=== PATIENT | female | born 1945 | race Caucasian/White ===

== ENCOUNTER → 2017-05-08 | Outpatient (CLI) | payer OTHER, MEDICARE | LOC: FIMAGING 19:21 | PROVIDERS: ATTEND Psychiatry & Neurology Neurology | DX: M50.30 Other cervical disc degeneration, unspecified cervical region (principal); M47.892 Other spondylosis, cervical region ==

== ENCOUNTER → 2017-11-14 | Outpatient (CLI) | payer OTHER, MEDICARE | LOC: FCPNEURO 23:13 | PROVIDERS: ATTEND Student in an Organized Health Care Education/Training Program | DX: G47.33 Obstructive sleep apnea (adult) (pediatric) (principal); R09.02 Hypoxemia ==

== ENCOUNTER 2017-11-28 13:48 | Observation (INO) | payer OTHER, MEDICARE ==
[2017-11-28] MEDS ORDERED: ASPIRIN 81 MG CHEWABLE TAB ONE (13:57)
--- NOTE | 2017-11-28 14:04 | CPEKG ---
Heart Rate: 75 RR Interval: 800 P-R Interval: 188 QRSD Interval: 80 QT Interval: 376 QTC Interval: 420 P Jackson: 35 QRS Jackson: 96 T Wave Jackson: 42 EKG Severity - OTHERWISE NORMAL ECG - EKG Impression: SINUS RHYTHM EKG Impression: RIGHT AXIS DEVIATION Electronically Signed By: Bryant Brooks 28-Nov-2017 14:27:10
[2017-11-28] MEDS ORDERED: ASPIRIN 81 MG CHEWABLE TAB PO ONE (14:13)
[2017-11-28 14:23] LABS: PLATELET COUNT 210 10^3/uL (150-400)
--- NOTE | 2017-11-28 14:27 | EDPHY ---
H & P Time Seen by Provider: 11/28/17 13:55 HPI/ROS: CHIEF COMPLAINT: Chest pain diaphoresis HISTORY OF PRESENT ILLNESS: Patient has been having symptoms on and off for the last 2 months. Today at 10:00 a.m. she developed left sided chest pain just lateral to the sternum radiating to her armpit which was sensitive discomfort associated with feeling nausea and very clammy which lasted about 4 hr now is completely gone. Associated with her just feeling on well and fatigued and no energy. Her daughter thought she was unsteady on her feet. Symptoms were moderate in our completely resolved. Not exertional or positional or pleuritic. REVIEW OF SYSTEMS: Eye: no change in vision ENT: no sore throat Cardiac: HPI Pulmonary: no cough or SOB Abdomen: no vomiting, diarrhea, abdominal pain Musculoskeletal: no back pain or leg swelling Skin: Clammy Neuro: no headache Constitutional: no fever : no urinary symptoms A comprehensive 10 point review of systems is otherwise negative aside from elements mentioned in the history of present illness. PAST MEDICAL HISTORY: Cholecystectomy, hysterectomy, knee replacement. Negative for diabetes hypertension, cholesterol unknown. Bipolar. Had a stress test about 10 years ago, last cardiac risk stratification. Family history: Father at 63 of myocardial infarction, brother has coronary disease. Social history: Nonsmoker General Appearance: Alert and conversant, cooperative. Eyes: No scleral icterus. ENT, Mouth: Normal mucous membranes. Respiratory: Normal respiratory effort, breath sounds equal, lungs are clear to auscultation. Cardiovascular: Regular rate and rhythm. Gastrointestinal: Abdomen is soft and non tender. Neurological: Alert, face symmetric, normal motor and sensory in extremities. Skin: Not currently diaphoretic, no zoster Musculoskeletal: No peripheral edema. No calf tenderness. Psychiatric: Not agitated. Emergency Department course/MDM: Oral aspirin, high suspicion for ACS with history and diaphoresis, risk factor of significant family history. EKG, chest x-ray, troponin, admission for risk stratification. HEART score 5, moderate risk, if troponin normal. 1446: Troponin negative, discussed with the admitting hospitalist Dr. Philippe. Results and plan discussed with patient and daughter, in agreement. Smoking Status: Never smoked Constitutional: Initial Vital Signs Temperature (C) 36.8 C 11/28/17 13:50 Heart Rate 87 11/28/17 13:50 Respiratory Rate 18 11/28/17 13:50 Blood Pressure 148/89 H 11/28/17 13:50 O2 Sat (%) 93 11/28/17 13:50 O2 Delivery Mode Room Air Allergies/Adverse Reactions: No Known Allergies Allergy (Unverified 11/28/17 13:49) Home Medications: Medication Instructions Recorded Depakote 11/28/17 RESTORIL 11/28/17 Seroquel 11/28/17 Medical Decision Making - Diagnostics EKG Interpretation: 12-lead EKG interpreted by me; official reading is in trace master. My interpretation is sinus rhythm with right axis, no acute ischemic changes. Imaging Results: Chest x-ray personally interpreted as negative for reason for chest pain. Differential Diagnosis: Differential diagnosis considered for chest pain including but not limited to myocardial ischemia, aortic dissection, pericarditis, pulmonary embolus, chest wall pain, pleural inflammation and pulmonary infectious causes. - Data Points Laboratory Results: Laboratory Results 11/28/17 14:08 11/28/17 14:08 11/28/17 11/28/17 14:08 14:08 WBC 6.36 10^3/uL 10^3/uL (3.80-9.50) RBC 4.52 10^6/uL 10^6/uL (4.18-5.33) Hgb 16.0 g/dL g/dL (12.6-16.3) Hct 45.2 % % (38.0-47.0) MCV 100.0 fL H fL (81.5-99.8) MCH 35.4 pg H pg (27.9-34.1) MCHC 35.4 g/dL g/dL (32.4-36.7) RDW 13.2 % % (11.5-15.2) Plt Count 210 10^3/uL 10^3/uL (150-400) MPV 9.3 fL fL (8.7-11.7) Neut % (Auto) 47.8 % % (39.3-74.2) Lymph % (Auto) 38.4 % % (15.0-45.0) Caroline % (Auto) 11.0 % % (4.5-13.0) Eos % (Auto) 1.7 % % (0.6-7.6) Baso % (Auto) 0.6 % % (0.3-1.7) Nucleat RBC Rel Count 0.0 % % (0.0-0.2) Absolute Neuts (auto) 3.04 10^3/uL 10^3/uL (1.70-6.50) Absolute Lymphs (auto) 2.44 10^3/uL 10^3/uL (1.00-3.00) Absolute Monos (auto) 0.70 10^3/uL 10^3/uL (0.30-0.80) Absolute Eos (auto) 0.11 10^3/uL 10^3/uL (0.03-0.40) Absolute Basos (auto) 0.04 10^3/uL 10^3/uL (0.02-0.10) Absolute Nucleated RBC 0.00 10^3/uL 10^3/uL (0-0.01) Immature Gran % 0.5 % % (0.0-1.1) Immature Gran # 0.03 10^3/uL 10^3/uL (0.00-0.10) Sodium 142 mEq/L mEq/L (134-144) Potassium 4.7 mEq/L mEq/L (3.5-5.2) Chloride 107 mEq/L mEq/L (97-110) Carbon Dioxide 24 mEq/l mEq/l (22-31) Anion Gap 11 mEq/L mEq/L (8-16) BUN 19 mg/dL mg/dL (7-23) Creatinine 0.7 mg/dL mg/dL (0.6-1.0) Estimated GFR > 60 Glucose 96 mg/dL mg/dL (70-100) Calcium 10.3 mg/dL mg/dL (8.5-10.4) Troponin I < 0.012 ng/mL ng/mL (0.000-0.034) Medications Given: Discontinued Medications Aspirin (Aspirin) 324 mg PO EDNOW ONE Stop: 11/28/17 14:14 Last Admin: 11/28/17 14:15 Dose: 324 mg Departure - Departure Disposition: [facility] Acute Clinical Impression: Chest pain Qualifiers: Chest pain type: unspecified Qualified Code(s): R07.9 - Chest pain, unspecified Condition: Good
[2017-11-28] MEDS ORDERED: ONDANSETRON DISINTEGRATING 4 MG TAB PO PRN (16:04)
[2017-11-28] MEDS ORDERED: ONDANSETRON 4 MG/2 ML VIAL IVP PRN (16:04)
[2017-11-28] MEDS ORDERED: ACETAMINOPHEN 325 MG TAB PO PRN (16:04)
--- NOTE | 2017-11-28 16:31 | GHP ---
[f rep st] HISTORY AND PHYSICAL DATE OF ADMISSION: 11/28/2017 CHIEF COMPLAINT: Chest pain. HISTORY OF PRESENT ILLNESS: A 72-year-old female, no previous cardiac history. Over the last severa l months, she has been having intermittent chest pressure not related to activity. Sometimes it is r adiating to her axilla. Not associated with shortness of breath or diaphoresis. This usually lasts 5-10 minutes. Today, however, she was at her doctor's office getting results of her sleep study and she had the same chest pressure but it was associated with diaphoresis and some clamminess, and did n ot feel well overall. Thus, she came to the emergency department. Currently, she is chest pain free . She can either have bandlike chest pressure or sharp pain that radiates through her left breast. REVIEW OF SYSTEMS: A 10-point review of systems was obtained and negative. PAST MEDICAL HISTORY: 1. Bipolar, which was diagnosed as an older adult. 2. Obstructive sleep apnea recently diagnosed. PAST SURGICAL HISTORY: Cholecystectomy, hysterectomy, knee replacement. MEDICATIONS: Reviewed. SOCIAL HISTORY: No smoking. FAMILY HISTORY: Father of a heart attack in his 60s. Brother has heart failure. PHYSICAL EXAM: VITAL SIGNS: Afebrile, blood pressure is 135/64, heart rate 33, oxygen saturation 97 % on room air. GENERAL: The patient is well developed, no apparent distress. HEENT: Nonicteric sc lerae. Extraocular movements intact. Moist mucous membranes. NECK: Supple. No thyromegaly. LUNG S: Good effort. Clear to auscultation bilaterally. CARDIOVASCULAR: Regular rate and rhythm. A so ft 2/6 systolic murmur best heard in the right upper sternal border. ABDOMEN: Positive bowel sounds . Soft, nontender, nondistended. No hepatosplenomegaly. EXTREMITIES: No clubbing, cyanosis. Trac e edema. SKIN: Without rash. Dry, intact. NEUROLOGIC: Alert and oriented x3. Moving all 4 extre mities equally. PSYCH: Normal mood and affect. LABS: CBC is normal. Chemistry normal. Troponin is negative. EKG personally reviewed and interpre anival, shows very subtle ST-segment elevation in the lead III and AVF. It is definitely less than a mm . Chest x-ray personally reviewed and interpreted, negative. ASSESSMENT: This is a 72-year-old female, presenting with chest pain. PLAN: 1. Chest pain. Patient is chest pain free. We will cycle troponins. She says that she walks her d og every day and she could walk on a treadmill briskly. We will try a treadmill nuclear medicine jono t in the morning. 2. Bipolar. Continue medications. 3. Obstructive sleep apnea. She is untreated. /[id number]/MODL
[2017-11-28] MEDS ORDERED: DIVALPROEX ER 500 MG TAB PO SCH (21:00)
[2017-11-28] MEDS ORDERED: QUEtiapine FUMARATE 100 MG TAB PO SCH (21:00)
[2017-11-28] MEDS: ACETAMINOPHEN 500 MG TAB PO SCH (22:21)
[2017-11-29] MEDS ORDERED: ESCITALOPRAM OXALATE 10 MG TAB PO SCH (09:00)
[2017-11-29] MEDS: ACETAMINOPHEN 500 MG TAB PO SCH ×2 (09:27→15:47)
[2017-11-29] MEDS ORDERED: REGADENOSON 0.4 MG/5 ML SYR IVP ONE (10:03)
--- NOTE | 2017-11-29 10:19 | PDCARST ---
CAR Stress Test Results Type of Stress Test: Lexiscan stress test Indication: Chest pains Description of Procedure: Consent was obtained for the procedure. Initially ordered as treadmill, but patient with concerns about balance and gait instability, so Yolette was arranged. Blood pressure, heart rate, live telemetry, and oxygen saturations were all monitored over the injection phase. Impression: No ECG changes were noted. Unremarkable Yolette scan injection. Nuclear images are pending. Conclusion: Unremarkable Lexiscan injection.
[2017-11-29 10:50] VITALS: PULSE 70
--- NOTE | 2017-11-29 11:54 | ASMTCASEMG ---
Living Arrangements What is your living Answers: Alone arrangement? Who do you live with? Type Of Residence What kind of residence do Answers: House you live in? Discharge Plan Comments Coordination Status Comments Notes: Pt is a 72 y/o female admitted for chest pain. OT has been ordered and awaiting recommendations. Pt will most likely d/c independent when medically stable. CM available for d/c needs. Plan: Independent Date Signed: 11/29/2017 11:54 AM Electronically Signed By:CORTEZ Velasquez
--- NOTE | 2017-11-29 12:54 | HOSPPROG ---
Hospitalist Progress Note Assessment/Plan: 72 yo F w CP neg stress home today see dc summary Subjective: no events tele. neg stress Objective: Vital Signs Temp Pulse Resp BP Pulse Ox 36.5 C 70 18 122/74 H 93 11/29/17 10:49 11/29/17 10:49 11/29/17 10:49 11/29/17 10:49 11/29/17 10:49 11/28/17 11/29/17 11/30/17 05:59 05:59 05:59 Intake Total 200 Balance 200 - Physical Exam Constitutional: no apparent distress, appears nourished Eyes: PERRL Ears, Nose, Mouth, Throat: moist mucous membranes, hearing normal Cardiovascular: regular rate and rhythym, no murmur, rub, or gallop Respiratory: no respiratory distress, no rales or rhonchi Gastrointestinal: normoactive bowel sounds, soft, non-tender abdomen Genitourinary: no bladder fullness Skin: warm ICD10 Worksheet Patient Problems: Problems Problem Status Onset Chest pain Acute
[2017-11-29 16:25] VITALS: BP 117/72; RESP 16; TEMP 98; O2SAT 92
--- NOTE | 2017-11-30 04:31 | GDS ---
[f rep st] DISCHARGE SUMMARY DISCHARGE DIAGNOSES: 1. Chest pain with negative cardiac workup. 2. Bipolar. 3. Obstructive sleep apnea. HOSPITAL COURSE: The patient presented. She had a nonischemic EKG. She underwent stress test with nuclear images which revealed no evidence of prior infarct or ischemia and intact EF. There were no EKG changes with adenosine infusion. She had negative troponins, nonischemic EKG. Discharged home o n an unchanged medication regimen other than the addition of pantoprazole for possible GI etiology of her chest pain, as well as an enteric-coated aspirin 81 mg. /[id number]/MODL
--- NOTE | 2017-11-30 14:35 | ASDISCHSUM ---
Discharge Information Plan Status:Home with No Needs Medically Cleared to Leave:11/28/2017 Discharge Date:11/29/2017 05:06 PM D/C Disposition: ADT D/C Disposition:Home, Routine, Self-Care Projected Discharge Date:11/29/2017 12:00 AM Transportation at D/C: Discharge Delay Reason: Follow-Up Date:11/29/2017 12:00 AM Discharge Slot: Final Diagnosis: Placement Information Patient Contact Information Contact Name:SHELIA Relationship:Nabor Address: Work Phone: City: [facility] Phone: State/Zip Code: Email: Financial Information Financial Class: Primary Plan Desc:MEDICARE OUTPATIENT Primary Plan Number:[id number] Secondary Plan Desc:[employer]/M[employer] SUPPLEMENT Secondary Plan Number:[id number] Assessment Information [facility] Initial CM Assessment Living Arrangements What is your living Answers: Alone arrangement? Who do you live with? Type Of Residence What kind of residence do Answers: House you live in? Discharge Plan Comments Coordination Status Comments Notes: Pt is a 72 y/o female admitted for chest pain. OT has been ordered and awaiting recommendations. Pt will most likely d/c independent when medically stable. CM available for d/c needs. Plan: Independent Date Signed: 11/29/2017 11:54 AM Electronically Signed By:CORTEZ Velasquez Intervention Information Intervention Type:BRITTON-Signed Date of Service:11/29/2017 10:03 AM Patient Type:Observation Staff Member:Pham Chapman Hours: Discipline: Severity: Comment:
== END 2017-11-29 17:06 | disposition home or self-care (01) ==
LOC: F2W 18:16
PROVIDERS: ADMIT Internal Medicine; ATTEND Internal Medicine
DX: R07.9 Chest pain, unspecified (principal); F31.9 Bipolar disorder, unspecified; G47.33 Obstructive sleep apnea (adult) (pediatric); Z82.49 Family history of ischemic heart disease and other diseases of the circulatory system; Z96.659 Presence of unspecified artificial knee joint; Z90.710 Acquired absence of both cervix and uterus
CPT/HCPCS: 71046; 78452; 93005; 93017; 97165; 99285; A9500; G8987; G8988; G8989; J2785

== ENCOUNTER → 2018-01-22 | Outpatient (CLI) | payer OTHER, MEDICARE | LOC: BMCIMAGING 13:30 | PROVIDERS: ATTEND Internal Medicine Geriatric Medicine | DX: E04.2 Nontoxic multinodular goiter (principal) | CPT/HCPCS: 76536-PO ==